=== PATIENT | male | born 1960 | race Caucasian/White ===

== ENCOUNTER 2019-01-22 12:22 | Emergency (ER) | payer OTHER | END 2019-01-22 15:09 | disposition home or self-care (01) | LOC: E/R 12:22 | DX: S51.811A Laceration without foreign body of right forearm, initial encounter (principal); X58.XXXA Exposure to other specified factors, initial encounter; Y92.9 Unspecified place or not applicable | CPT/HCPCS: 29125; 93931; 99284-25 ==